=== PATIENT | male | born 1960 | race African-American/Black ===

== ENCOUNTER 2017-12-15 06:30 | Inpatient (IN) | payer OTHER ==
[2017-12-13 17:25] VITALS: BMI 27.3
[2017-12-15] MEDS ORDERED: NEOSTIGMINE METHYLSULFATE 0.5 MG/1 ML - 10 ML MDV ONE (07:25)
[2017-12-15] MEDS ORDERED: PROPOFOL 20 ML ONE ×2 (07:25)
[2017-12-15] MEDS ORDERED: ROCURONIUM BROMIDE 50 MG/5 ML VIAL ONE ×3 (07:25→11:16)
[2017-12-15] MEDS ORDERED: MIDAZOLAM HCL 2 MG/2 ML SINGLE DOSE VIAL ONE ×2 (07:25)
[2017-12-15] MEDS ORDERED: LIDOCAINE HCL/PF 2% SDV 5ML VIAL ONE (07:25)
[2017-12-15] MEDS ORDERED: fentaNYL CITRATE 250 MCG/5 ML VIAL ONE (07:25)
[2017-12-15] MEDS ORDERED: GLYCOPYRROLATE 0.2 MG/1 ML VIAL ONE (07:25)
[2017-12-15] MEDS ORDERED: ceFAZolin SODIUM 1 GM VIAL ONE ×2 (07:25→17:35)
[2017-12-15] MEDS ORDERED: SUCCINYLCHOLINE CHLORIDE 200 MG/10 ML VIAL ONE ×2 (07:25→14:19)
[2017-12-15] MEDS ORDERED: DEXAMETHASONE SOD PHOSPHATE 4 MG/1 ML VIAL ONE (07:25)
[2017-12-15] MEDS ORDERED: ONDANSETRON 4 MG/2 ML VIAL ONE (07:25)
[2017-12-15] MEDS ORDERED: CEFAZOLIN 2 GM in DEXTROSE 5%-WATER - 100 ML IVPB ONE (07:37)
--- NOTE | 2017-12-15 08:23 | HP ---
History & Physical Update - History History: No Change - Physical Physical: No Change - Assessment Assessment: No Change - Plan Plan: No Change
[2017-12-15] MEDS ORDERED: BUPIVACAINE HCL/PF 0.25% (2.5MG/ML) 10 ML VIAL ONE (08:24)
[2017-12-15] MEDS ORDERED: GENTAMICIN SO4 80 MG/2 ML VIAL ONE (08:24)
[2017-12-15] MEDS ORDERED: LIDOCAINE 1%/EPI 1:100000 (50 ML MULTI DOSE VIAL) INF ONE ×2 (09:15→11:40)
[2017-12-15] MEDS ORDERED: ceFAZolin SODIUM 1 GM VIAL IVPB ONE ×2 (09:22→12:15)
[2017-12-15] MEDS ORDERED: VANCOMYCIN 1,000 MG VIAL (RESTRICTED TO ID ONLY) IVPB ONE (09:25)
[2017-12-15] MEDS ORDERED: BACITRACIN 15 GM TUBE TOPICAL OINTMENT ONE (10:36)
[2017-12-15] MEDS ORDERED: ePHEDrine SULFATE 50 MG/1 ML AMPULE ONE (12:04)
[2017-12-15] MEDS ORDERED: BUPIVACAINE HCL/PF 0.5% (5MG/ML) 10 ML VIAL ONE (12:19)
[2017-12-15] MEDS ORDERED: ACETAMINOPHEN INJECTION 100 ML IVPB ONE (13:01)
[2017-12-15] MEDS ORDERED: ACETAMINOPHEN 1000 MG/100 ML VIAL (NON FORMULARY) IVPB ONE (13:10)
[2017-12-15] MEDS ORDERED: BUPIVACAINE HCL/PF 0.5% (5MG/ML) 10 ML VIAL IJ ONE (13:20)
[2017-12-15] MEDS ORDERED: VANCOMYCIN 1,000 MG VIAL (RESTRICTED TO ID ONLY) ONE (13:36)
[2017-12-15] MEDS ORDERED: LABETALOL HCL 5 MG/1 ML (100MG/20 ML VIAL) ONE (14:05)
[2017-12-15] MEDS ORDERED: DEXAMETHASONE SOD PHOSPHATE 4 MG/1 ML VIAL IVPUSH PRN (14:39)
[2017-12-15] MEDS ORDERED: ONDANSETRON 4 MG/2 ML VIAL IVPUSH PRN ×3 (14:39→14:45)
[2017-12-15] MEDS ORDERED: PROMETHAZINE HCL 25 MG/1 ML VIAL IVPB PRN (14:39)
--- NOTE | 2017-12-15 14:42 | OP ---
Operative Note - Note: Operative Date: 12/15/17 Pre-Operative Diagnosis: Cervical spondylosis and kyphosis Operation: Anterior c4/c5, c5/c6, c6/c7 corpectomies mormon of lordosis, reconstruction with PEEK Cage/anterior plating, Posterior C3/C4, C4/C5, C5/C6, C6/C7 laminectomies with mormon of lordosis and fusion Findings: as dictated Implants: as dictated Post-Operative Diagnosis: Same as Pre-op Surgeon: Oziel Lora City Constable: Sheeba Perea Anesthesiologist/METAL BOX MAKER: Ismael Maya Anesthesia: General, Local (Lido/epi 20cc to anterior incision, 20cc to posterior incision, 40cc .5% Marcaine to Posterior subcutaneous tissues at completion of case ) Estimated Blood Loss (mls): 300 (ml) Drains & Tubes with Location: JASMIN drains x2 Anterior cervical and posterior cervical subcutaneous tissue Fluid Volume Replaced (mls): 2,800 (ml) Operative Report Dictated: Yes
[2017-12-15] MEDS ORDERED: LACTATED RINGERS SOLUTION 1,000 ML IV SCH (14:45)
[2017-12-15] MEDS ORDERED: oxyCODONE HCL 5 MG TABLET PO PRN (14:53)
--- NOTE | 2017-12-15 15:01 | SURG ---
Surgery Cloth Layer Note Cloth Layer: Sheeba Perea PA-C (Suzy) Date of Service: 12/15/17 Diagnosis: Cervical spondylosis and kyphosis Procedure: Anterior c4/c5, c5/c6, c6/c7 corpectomies mosque of lordosis, reconstruction with PEEK Cage/anterior plating, Posterior C3/C4, C4/C5, C5/C6, C6/C7 laminectomies with mosque of lordosis and fusion I was present for the entirety of the operative procedure. For further detail, please refer to operative report. Visit type - Case Type Case Type: Scheduled - Emergency Emergency Visit: No - New patient This patient is new to me today: Yes Date on this admission: 12/15/17 - Critical Care Critical Care patient: No
[2017-12-15] MEDS: HYDROmorphone *PCA* 10MG/50ML DISP.SYRIN PCA SCH ×2 (15:10→23:08)
[2017-12-15] MEDS ORDERED: INSULIN SLIDING SCALE (NOVOLOG) 1 VIAL SQ ONE (15:50)
[2017-12-15] MEDS: LACTATED RINGERS SOLUTION 1,000 ML/1,000 ML INFUS.BAG IV SCH (18:15)
--- NOTE | 2017-12-15 18:48 | PROC ---
Procedure Note Procedure: Noe catheter placed by PA at start of case.
[2017-12-15] MEDS ORDERED: INSULIN REGULAR HUMAN 100 UNITS/ML *VIAL IVPUSH ONE (19:08)
[2017-12-15] MEDS ORDERED: CEFAZOLIN 1 GM in DEXTROSE 5%-WATER - 50 ML IVPB SCH (20:15)
[2017-12-15] MEDS: DOCUSATE SODIUM 100 MG CAPSULE (FP) PO SCH (23:19)
[2017-12-15] MEDS: ATORVASTATIN CA 10 MG TABLET (FP) PO SCH (23:19)
[2017-12-15] MEDS: INSULIN SLIDING SCALE (NOVOLOG) 1 VIAL SQ SCH ×2 (23:24)
[2017-12-16] MEDS ORDERED: ceFAZolin SODIUM 1 GM VIAL ONE (00:07)
[2017-12-16] MEDS ORDERED: DEXTROSE 5%-WATER - 50 ML IVPB ONE (00:08)
[2017-12-16] MEDS ORDERED: CEFAZOLIN 1 GM in DEXTROSE 5%-WATER - 50 ML IVPB ONE (02:00)
[2017-12-16] MEDS: diphenhydrAMINE HCL 25 MG CAPSULE (FP) PO PRN ×3 (06:14→17:57)
[2017-12-16] MEDS: DOCUSATE SODIUM 100 MG CAPSULE (FP) PO SCH ×3 (06:15→21:23)
[2017-12-16] MEDS: INSULIN SLIDING SCALE (NOVOLOG) 1 VIAL SQ SCH ×4 (06:18→21:34)
[2017-12-16] MEDS: HYDROmorphone *PCA* 10MG/50ML DISP.SYRIN PCA SCH ×2 (07:52→16:45)
[2017-12-16 08:37] LABS: HEMATOCRIT 38.4 % (35.4-49); HEMOGLOBIN 12.6 GM/dL (11.7-16.9); MCH 31.4 pg (25.7-33.7); MCHC 32.9 g/dl (32.0-35.9); MEAN CELL VOLUME 95.5 fl (80-96); MEAN PLT VOLUME 7.6 fl (7.5-11.1); PLATELET COUNT 253 K/MM3 (134-434); RBC 4.02 M/mm3 (4.00-5.60); RDW 13.1 % (11.9-15.9); WHITE BLOOD COUNT 12.9 K/mm3 (4.0-10.0)
[2017-12-16] MEDS: LACTATED RINGERS SOLUTION 1,000 ML/1,000 ML INFUS.BAG IV SCH ×2 (08:44→16:52)
[2017-12-16] MEDS: HEPARIN NA (PORCINE) 5,000 UNITS/ML 1ML VIAL SQ SCH ×3 (08:44→21:23)
[2017-12-16 09:11] LABS: ANION GAP 8 MMOL/L (8-16); BLOOD UREA NITROGEN 16 mg/dL (7-18); CALCIUM 8.7 mg/dL (8.5-10.1); CHLORIDE 102 mmol/L (98-107); CO2 30 mmol/L (21-32); GLUCOSE,RANDOM 131 mg/dL (74-106); POTASSIUM 4.1 mmol/L (3.5-5.1); SODIUM 140 mmol/L (136-145)
[2017-12-16] MEDS: FOLIC ACID 1 MG TABLET (FP) PO SCH (09:50)
[2017-12-16] MEDS: FERROUS SO4 325 MG TABLET (FP) PO SCH (09:50)
[2017-12-16] MEDS: LISINOPRIL 5 MG TABLET (FP) PO SCH (09:52)
[2017-12-16] MEDS ORDERED: PNEUMOC 13-VAL CONJ-DIP CRM/PF 0.5 ML DISP.SYRIN IM ONE (10:00)
[2017-12-16] MEDS ORDERED: INSULIN (LEVEMIR) 100 UNITS/ML UNITS SQ ONE (14:27)
[2017-12-16] MEDS: ACETAMINOPHEN 325 MG TABLET (FP) PO PRN (17:57)
--- NOTE | 2017-12-16 19:06 | PN ---
Progress Note (short form) - Note Progress Note: patient seen and examined in room at bedside patient awake c/o itching -- mostly around collar erythematous arounf border of collar chest / abdomen and arms no rash Vital Signs Period Temp Pulse Resp BP Sys/Marshall Pulse Ox Last 24 Hr 98.3 F-99.2 F 82-110 14-20 141-159/83-97 93-100 neck with rigid collar lungs clear bilateral heart s1/S2 abd soft non tender ext no edema / no calf tenderness FROM ++pulses CBC, BMP 12/16/17 07:00 12/16/17 07:00 Active Medications Acetaminophen (Tylenol -) 650 mg PO Q6H PRN PRN Reason: PAIN OR FEVER Last Admin: 12/16/17 17:57 Dose: 650 mg Atorvastatin Calcium (Lipitor -) 10 mg PO HS [facility] Last Admin: 12/15/17 23:19 Dose: 10 mg Dexamethasone Sodium Phosphate (Decadron Injection -) 4 mg IVPUSH ONCE PRN PRN Reason: NAUSEA AND/OR VOMITING Diphenhydramine HCl (Benadryl Injection -) 12.5 mg IVPUSH ONCE PRN PRN Reason: FOR ITCHING Last Admin: 12/16/17 03:13 Dose: 12.5 mg Diphenhydramine HCl (Benadryl -) 25 mg PO Q6H PRN PRN Reason: FOR ITCHING Last Admin: 12/16/17 17:57 Dose: 25 mg Docusate Sodium (Colace -) 100 mg PO TID [facility] Last Admin: 12/16/17 14:04 Dose: 100 mg Fentanyl (Sublimaze Injection -) 50 mcg IVPUSH [id number] PRN PRN Reason: PAIN-PACU ORDER X 4 DOSES ONLY Ferrous Sulfate (Feosol -) 325 mg PO DAILY [facility] Last Admin: 12/16/17 09:50 Dose: 325 mg Folic Acid (Folic Acid -) 1 mg PO DAILY [facility] Last Admin: 12/16/17 09:50 Dose: 1 mg Glipizide (Glucotrol -) 5 mg PO BIDAC [facility] Heparin Sodium (Porcine) (Heparin -) 5,000 unit SQ TID [facility] Last Admin: 12/16/17 14:04 Dose: 5,000 unit Hydromorphone HCl (Dilaudid Produce Sorter -) 10 mg STUNT WOMAN STUNT WOMAN [facility]; Protocol Stop: 12/22/17 14:39 Last Admin: 12/16/17 16:45 Dose: Not Given Lactated Ringer's (Lactated Ringers Solution) 1,000 ml in 1,000 mls @ 115 mls/ hr IV ASDIR [facility] Last Admin: 12/16/17 16:52 Dose: 115 mls/hr Insulin Aspart (Novolog Vial Sliding Scale -) 1 vial SQ ACHS [facility]; Protocol Last Admin: 12/16/17 16:47 Dose: Not Given Lisinopril (Prinivil) 5 mg PO DAILY [facility] Last Admin: 12/16/17 09:52 Dose: 5 mg Metformin HCl (Glucophage Xr -) 1,000 mg PO BIDAC [facility] Ondansetron HCl (Zofran Injection) 4 mg IVPUSH Q6H PRN PRN Reason: NAUSEA AND/OR VOMITING Ondansetron HCl (Zofran Injection) 4 mg IVPUSH Q4H PRN PRN Reason: NAUSEA AND/OR VOMITING Last Admin: 12/16/17 00:30 Dose: 4 mg Ondansetron HCl (Zofran Injection) 4 mg IVPUSH Q6H PRN PRN Reason: NAUSEA Oxycodone HCl (Roxicodone -) 5 mg PO Q4H PRN PRN Reason: PAIN LEVEL 1-5 Oxycodone HCl (Roxicodone -) 10 mg PO Q4H PRN PRN Reason: PAIN LEVEL 6-10 Promethazine HCl (Phenergan Injection -) 12.5 mg IVPB Q6H PRN PRN Reason: NAUSEA AND/OR VOMITING
[2017-12-16] MEDS ORDERED: diphenhydrAMINE HCL 25 MG CAPSULE (FP) PO PRN (19:07)
[2017-12-16] MEDS: ATORVASTATIN CA 10 MG TABLET (FP) PO SCH (21:23)
[2017-12-17] MEDS: ACETAMINOPHEN 325 MG TABLET (FP) PO PRN (00:57)
[2017-12-17] MEDS: INSULIN SLIDING SCALE (NOVOLOG) 1 VIAL SQ SCH ×4 (07:07→22:14)
[2017-12-17] MEDS: HEPARIN NA (PORCINE) 5,000 UNITS/ML 1ML VIAL SQ SCH ×3 (07:09→22:14)
[2017-12-17] MEDS: DOCUSATE SODIUM 100 MG CAPSULE (FP) PO SCH ×3 (07:15→22:13)
--- NOTE | 2017-12-17 07:48 | PN ---
Progress Note, Physician Chief Complaint: s/p cervical corpectomy, laminectomy and fusion under general anesthesia History of Present Illness: post op day one with contact lens flashing puncher for post op pain control - Current Medication List Current Medications: Active Medications Acetaminophen (Tylenol -) 650 mg PO Q6H PRN PRN Reason: PAIN OR FEVER Last Admin: 12/17/17 00:57 Dose: 650 mg Atorvastatin Calcium (Lipitor -) 10 mg PO HS [facility] Last Admin: 12/16/17 21:23 Dose: 10 mg Dexamethasone Sodium Phosphate (Decadron Injection -) 4 mg IVPUSH ONCE PRN PRN Reason: NAUSEA AND/OR VOMITING Diphenhydramine HCl (Benadryl Injection -) 12.5 mg IVPUSH ONCE PRN PRN Reason: FOR ITCHING Last Admin: 12/16/17 03:13 Dose: 12.5 mg Diphenhydramine HCl (Benadryl -) 50 mg PO Q6H PRN PRN Reason: FOR ITCHING Docusate Sodium (Colace -) 100 mg PO TID [facility] Last Admin: 12/17/17 07:15 Dose: 100 mg Fentanyl (Sublimaze Injection -) 50 mcg IVPUSH [id number] PRN PRN Reason: PAIN-PACU ORDER X 4 DOSES ONLY Ferrous Sulfate (Feosol -) 325 mg PO DAILY [facility] Last Admin: 12/16/17 09:50 Dose: 325 mg Folic Acid (Folic Acid -) 1 mg PO DAILY [facility] Last Admin: 12/16/17 09:50 Dose: 1 mg Glipizide (Glucotrol -) 5 mg PO BIDAC [facility] Heparin Sodium (Porcine) (Heparin -) 5,000 unit SQ TID [facility] Last Admin: 12/17/17 07:09 Dose: 5,000 unit Hydromorphone HCl (Dilaudid Wireless Telegrapher -) 10 mg GOLF CLUB MAKER GOLF CLUB MAKER [facility]; Protocol Stop: 12/22/17 14:39 Last Admin: 12/16/17 16:45 Dose: Not Given Lactated Ringer's (Lactated Ringers Solution) 1,000 ml in 1,000 mls @ 115 mls/ hr IV ASDIR [facility] Last Admin: 12/16/17 16:52 Dose: 115 mls/hr Insulin Aspart (Novolog Vial Sliding Scale -) 1 vial SQ [facility]; Protocol Last Admin: 12/17/17 07:07 Dose: Not Given Lisinopril (Prinivil) 5 mg PO DAILY [facility] Last Admin: 12/16/17 09:52 Dose: 5 mg Metformin HCl (Glucophage Xr -) 1,000 mg PO BIDAC [facility] Ondansetron HCl (Zofran Injection) 4 mg IVPUSH Q6H PRN PRN Reason: NAUSEA AND/OR VOMITING Ondansetron HCl (Zofran Injection) 4 mg IVPUSH Q4H PRN PRN Reason: NAUSEA AND/OR VOMITING Last Admin: 12/16/17 00:30 Dose: 4 mg Ondansetron HCl (Zofran Injection) 4 mg IVPUSH Q6H PRN PRN Reason: NAUSEA Oxycodone HCl (Roxicodone -) 5 mg PO Q4H PRN PRN Reason: PAIN LEVEL 1-5 Oxycodone HCl (Roxicodone -) 10 mg PO Q4H PRN PRN Reason: PAIN LEVEL 6-10 Promethazine HCl (Phenergan Injection -) 12.5 mg IVPB Q6H PRN PRN Reason: NAUSEA AND/OR VOMITING - Objective Vital Signs: Vital Signs Temperature 100 F H 12/17/17 06:00 Pulse Rate 102 H 12/17/17 06:00 Respiratory Rate 20 12/17/17 06:00 Blood Pressure 154/91 12/17/17 06:00 O2 Sat by Pulse Oximetry (%) 93 L 12/16/17 09:00 Constitutional: Yes: Well Nourished Cardiovascular: Yes: WNL Respiratory: Yes: WNL Gastrointestinal: Yes: WNL Assessment/Plan pain controlled, patient not tolerating PO yet, will continue contact lens flashing puncher
[2017-12-17 07:54] LABS: BASO % 0.5 % (0-2.0); EOS % 0.2 % (0-4.5); HEMOGLOBIN 12.4 GM/dL (11.7-16.9); LYMPH % 14.9 % (8-40); MCH 31.8 pg (25.7-33.7); MCHC 33.5 g/dl (32.0-35.9); MEAN CELL VOLUME 94.7 fl (80-96); MEAN PLT VOLUME 7.8 fl (7.5-11.1); MONO % 8.9 % (3.8-10.2); NEUT % 75.5 % (42.8-82.8); PLATELET COUNT 229 K/MM3 (134-434); WHITE BLOOD COUNT 12.5 K/mm3 (4.0-10.0)
[2017-12-17 08:19] LABS: ANION GAP 10 MMOL/L (8-16); BLOOD UREA NITROGEN 10 mg/dL (7-18); CALCIUM 8.6 mg/dL (8.5-10.1); CHLORIDE 100 mmol/L (98-107); CO2 30 mmol/L (21-32); CREATININE 0.8 mg/dL (0.55-1.3); GLUCOSE,RANDOM 119 mg/dL (74-106); POTASSIUM 4.1 mmol/L (3.5-5.1); SODIUM 140 mmol/L (136-145)
[2017-12-17] MEDS ORDERED: PT OWN MED DRAWER 7, Y5N ONE ×2 (08:42→17:13)
[2017-12-17] MEDS: glipiZIDE 5 MG TABLET (FP) PO SCH ×2 (08:53→17:18)
[2017-12-17] MEDS: LISINOPRIL 5 MG TABLET (FP) PO SCH (10:47)
[2017-12-17] MEDS: FERROUS SO4 325 MG TABLET (FP) PO SCH (10:47)
[2017-12-17] MEDS: FOLIC ACID 1 MG TABLET (FP) PO SCH (10:47)
--- NOTE | 2017-12-17 12:52 | PN ---
Progress Note (short form) - Note Progress Note: ANESTHESIOLOGY 57M on dilaudid TRAINING CONSULTANT, POD #2. Doing well, pain well controlled. Poor appetite. Vital Signs Temperature 99.4 F 12/17/17 09:16 Pulse Rate 103 H 12/17/17 09:16 Respiratory Rate 20 12/17/17 09:16 Blood Pressure 153/88 12/17/17 09:16 O2 Sat by Pulse Oximetry (%) 93 L 12/16/17 09:00 Active Medications Acetaminophen (Tylenol -) 650 mg PO Q6H PRN PRN Reason: PAIN OR FEVER Last Admin: 12/17/17 00:57 Dose: 650 mg Atorvastatin Calcium (Lipitor -) 10 mg PO HS [facility] Last Admin: 12/16/17 21:23 Dose: 10 mg Dexamethasone Sodium Phosphate (Decadron Injection -) 4 mg IVPUSH ONCE PRN PRN Reason: NAUSEA AND/OR VOMITING Diphenhydramine HCl (Benadryl Injection -) 12.5 mg IVPUSH ONCE PRN PRN Reason: FOR ITCHING Last Admin: 12/16/17 03:13 Dose: 12.5 mg Diphenhydramine HCl (Benadryl -) 50 mg PO Q6H PRN PRN Reason: FOR ITCHING Docusate Sodium (Colace -) 100 mg PO TID [facility] Last Admin: 12/17/17 07:15 Dose: 100 mg Fentanyl (Sublimaze Injection -) 50 mcg IVPUSH [id number] PRN PRN Reason: PAIN-PACU ORDER X 4 DOSES ONLY Ferrous Sulfate (Feosol -) 325 mg PO DAILY [facility] Last Admin: 12/17/17 10:47 Dose: 325 mg Folic Acid (Folic Acid -) 1 mg PO DAILY [facility] Last Admin: 12/17/17 10:47 Dose: 1 mg Glipizide (Glucotrol -) 5 mg PO BIDAC [facility] Last Admin: 12/17/17 08:53 Dose: 5 mg Heparin Sodium (Porcine) (Heparin -) 5,000 unit SQ TID [facility] Last Admin: 12/17/17 07:09 Dose: 5,000 unit Hydromorphone HCl (Dilaudid Electroencephalograph Technologist -) 10 mg TRAINING CONSULTANT TRAINING CONSULTANT [facility]; Protocol Stop: 12/22/17 14:39 Last Admin: 12/16/17 16:45 Dose: Not Given Lactated Ringer's (Lactated Ringers Solution) 1,000 ml in 1,000 mls @ 115 mls/ hr IV ASDIR [facility] Last Admin: 12/16/17 16:52 Dose: 115 mls/hr Insulin Aspart (Novolog Vial Sliding Scale -) 1 vial SQ ACHS [facility]; Protocol Last Admin: 12/17/17 11:11 Dose: 2 units Lisinopril (Prinivil) 5 mg PO DAILY [facility] Last Admin: 12/17/17 10:47 Dose: 5 mg Metformin HCl (Glucophage Xr -) 1,000 mg PO BIDAC [facility] Last Admin: 12/17/17 08:53 Dose: 1,000 mg Ondansetron HCl (Zofran Injection) 4 mg IVPUSH Q6H PRN PRN Reason: NAUSEA AND/OR VOMITING Ondansetron HCl (Zofran Injection) 4 mg IVPUSH Q4H PRN PRN Reason: NAUSEA AND/OR VOMITING Last Admin: 12/16/17 00:30 Dose: 4 mg Ondansetron HCl (Zofran Injection) 4 mg IVPUSH Q6H PRN PRN Reason: NAUSEA Oxycodone HCl (Roxicodone -) 5 mg PO Q4H PRN PRN Reason: PAIN LEVEL 1-5 Oxycodone HCl (Roxicodone -) 10 mg PO Q4H PRN PRN Reason: PAIN LEVEL 6-10 Promethazine HCl (Phenergan Injection -) 12.5 mg IVPB Q6H PRN PRN Reason: NAUSEA AND/OR VOMITING GEn :NAD Pain well controlled, continue TRAINING CONSULTANT until tolerating PO diet.
[2017-12-17] MEDS: oxyCODONE HCL 5 MG TABLET PO PRN ×3 (14:02→22:13)
--- NOTE | 2017-12-17 18:08 | PN ---
Progress Note (short form) - Note Progress Note: patient seen and examined in room at bedside patient awake --itching now resolved difficulty chewing Vital Signs Period Temp Pulse Resp BP Sys/Marshall Pulse Ox Last 24 Hr 98.3 F-99.2 F 82-110 14-20 141-159/83-97 93-100 neck with rigid collar lungs clear bilateral heart s1/S2 abd soft non tender ext no edema / no calf tenderness FROM ++pulses CBC, BMP 12/17/17 07:00 12/17/17 07:00 CBC, BMP 12/16/17 07:00 12/16/17 07:00 Active Medications Acetaminophen (Tylenol -) 650 mg PO Q6H PRN PRN Reason: PAIN OR FEVER Last Admin: 12/17/17 00:57 Dose: 650 mg Atorvastatin Calcium (Lipitor -) 10 mg PO HS [facility] Last Admin: 12/16/17 21:23 Dose: 10 mg Dexamethasone Sodium Phosphate (Decadron Injection -) 4 mg IVPUSH ONCE PRN PRN Reason: NAUSEA AND/OR VOMITING Diphenhydramine HCl (Benadryl Injection -) 12.5 mg IVPUSH ONCE PRN PRN Reason: FOR ITCHING Last Admin: 12/16/17 03:13 Dose: 12.5 mg Diphenhydramine HCl (Benadryl -) 50 mg PO Q6H PRN PRN Reason: FOR ITCHING Docusate Sodium (Colace -) 100 mg PO TID [facility] Last Admin: 12/17/17 14:03 Dose: 100 mg Fentanyl (Sublimaze Injection -) 50 mcg IVPUSH [id number] PRN PRN Reason: PAIN-PACU ORDER X 4 DOSES ONLY Ferrous Sulfate (Feosol -) 325 mg PO DAILY [facility] Last Admin: 12/17/17 10:47 Dose: 325 mg Folic Acid (Folic Acid -) 1 mg PO DAILY [facility] Last Admin: 12/17/17 10:47 Dose: 1 mg Glipizide (Glucotrol -) 5 mg PO BIDAC [facility] Last Admin: 12/17/17 17:18 Dose: 5 mg Heparin Sodium (Porcine) (Heparin -) 5,000 unit SQ TID [facility] Last Admin: 12/17/17 14:03 Dose: 5,000 unit Insulin Aspart (Novolog Vial Sliding Scale -) 1 vial SQ ACHS [facility]; Protocol Last Admin: 12/17/17 16:47 Dose: 2 units Lisinopril (Prinivil) 5 mg PO DAILY [facility] Last Admin: 12/17/17 10:47 Dose: 5 mg Metformin HCl (Glucophage Xr -) 1,000 mg PO BIDAC [facility] Last Admin: 12/17/17 17:18 Dose: 1,000 mg Ondansetron HCl (Zofran Injection) 4 mg IVPUSH Q6H PRN PRN Reason: NAUSEA AND/OR VOMITING Ondansetron HCl (Zofran Injection) 4 mg IVPUSH Q4H PRN PRN Reason: NAUSEA AND/OR VOMITING Last Admin: 12/16/17 00:30 Dose: 4 mg Ondansetron HCl (Zofran Injection) 4 mg IVPUSH Q6H PRN PRN Reason: NAUSEA Oxycodone HCl (Roxicodone -) 5 mg PO Q4H PRN PRN Reason: PAIN LEVEL 1-5 Oxycodone HCl (Roxicodone -) 10 mg PO Q4H PRN PRN Reason: PAIN LEVEL 6-10 Last Admin: 12/17/17 18:02 Dose: 10 mg Promethazine HCl (Phenergan Injection -) 12.5 mg IVPB Q6H PRN PRN Reason: NAUSEA AND/OR VOMITING s/p cervical corpectomy, laminectomy and fusion under general anesthesia POD #3 pain management physical therapy drains per Surgery medically stable
[2017-12-17] MEDS: ATORVASTATIN CA 10 MG TABLET (FP) PO SCH (22:13)
[2017-12-18] MEDS ORDERED: PT OWN MED DRAWER 7, Y5N ONE (06:50)
[2017-12-18] MEDS: glipiZIDE 5 MG TABLET (FP) PO SCH (06:56)
[2017-12-18] MEDS: HEPARIN NA (PORCINE) 5,000 UNITS/ML 1ML VIAL SQ SCH ×2 (06:57→14:19)
[2017-12-18] MEDS: INSULIN SLIDING SCALE (NOVOLOG) 1 VIAL SQ SCH ×2 (06:58→14:21)
[2017-12-18 07:54] LABS: BASO % 0.3 % (0-2.0); EOS % 0.7 % (0-4.5); HEMATOCRIT 38.9 % (35.4-49); HEMOGLOBIN 13.4 GM/dL (11.7-16.9); LYMPH % 16.2 % (8-40); MCH 32.4 pg (25.7-33.7); MCHC 34.5 g/dl (32.0-35.9); MEAN CELL VOLUME 94.2 fl (80-96); MEAN PLT VOLUME 8.2 fl (7.5-11.1); MONO % 9.4 % (3.8-10.2); NEUT % 73.4 % (42.8-82.8); PLATELET COUNT 250 K/MM3 (134-434); RBC 4.14 M/mm3 (4.00-5.60); RDW 12.9 % (11.9-15.9)
[2017-12-18 08:10] LABS: ANION GAP 12 MMOL/L (8-16); BLOOD UREA NITROGEN 10 mg/dL (7-18); CALCIUM 8.5 mg/dL (8.5-10.1); CHLORIDE 97 mmol/L (98-107); CO2 30 mmol/L (21-32); CREATININE 0.7 mg/dL (0.55-1.3); GLUCOSE,RANDOM 115 mg/dL (74-106); POTASSIUM 3.8 mmol/L (3.5-5.1); SODIUM 138 mmol/L (136-145)
[2017-12-18] MEDS: oxyCODONE HCL 5 MG TABLET PO PRN (08:42)
[2017-12-18] MEDS: ACETAMINOPHEN 325 MG TABLET (FP) PO PRN (08:44)
[2017-12-18] MEDS: LISINOPRIL 5 MG TABLET (FP) PO SCH (10:12)
[2017-12-18] MEDS: FERROUS SO4 325 MG TABLET (FP) PO SCH (10:12)
[2017-12-18] MEDS: FOLIC ACID 1 MG TABLET (FP) PO SCH (10:12)
--- NOTE | 2017-12-18 10:51 | PN ---
Progress Note (short form) - Note Progress Note: POD 3 Pt seen and examined. States he is having pain this morning, 6-7 at posterior neck (last PO meds 10pm). Reports pain and weakness to his left shoulder which he reports is new since yesterday morning, relays concern as he reports his RUE was the issue prior to surgery. Anterior JASMIN was accidentally removed overnight. Tolerating soft foods without issue, has been oob in holder without a problem. Voiding without difficulty. Denies cp, sob, n/v/d, calf pain or edema. Vital Signs Temp 98.6 F 12/18/17 06:44 Pulse 99 H 12/18/17 06:44 Resp 20 12/18/17 06:44 BP 163/92 12/18/17 06:44 Pulse Ox 95 12/17/17 09:00 Intake & Output 12/17/17 12/17/17 12/18/17 11:59 23:59 11:59 Intake Total 200 Output Total 45 670 65 Balance 155 -670 -65 Intake: Oral 200 Output: Drainage 45 70 65 drain #1 25 20 45 drain#2 20 50 20 Urine 600 Void 600 Other: Voiding Method Toilet Toilet CBC, BMP 12/18/17 07:15 12/18/17 07:15 Gen: awake, alert, nad, breathing without issue Neck: anterior dressing with minimal serosanguinous drainage at lateral aspect. Biopatch removed, dressing reinforced with tegaderm. Posterior dressing with minimal serosanguinous drainage, JASMIN with approx 10cc serosanguinous drainage in reservoir. JASMIN taken off of suction and removed without issue, tip intact. Pt tolerated well. Dressing reinforced with tegaderm. Resp: some rales auscultated over Left base of lung CV: tachy, s1s2, no murmur or rub EXT: b/l les without edema or pain Neuro: RUE full extension, lue only able to elevate to 45 degrees, b/l biceps/ triceps 5/5, RUE deltoid 5/5, LUE deltoid 2/5. Wrist ext/flexion 5/5 b/l, finger abduction 5/5 b/l. SILT slightly diminished b/l in fingertips (baseline per pt due to Finger sticks), b/l ue silt b/l. A/P: 57 y/o M w/ PMHx NIDDM, htn, Cervical spondylosis and kyphosis now POD 3, s /p Anterior c4/c5, c5/c6, c6/c7 corpectomies taoist of lordosis, reconstruction with PEEK Cage/anterior plating, Posterior C3/C4, C4/C5, C5/C6, C6/C7 laminectomies with taoist of lordosis and fusion. Mild LUE deltoid palsy new since yesterday. Pain controlled with PO pain meds, has been oob and voiding without issue. Congestion noted, low grade temps (tmax 100.9 over the weekend). Tachy likely d/t inadequate pain control. Posterior Jasmin removed (see exam above), anterior JASMIN self d/c'ed overnight by pt. -CXR ordered chest PT ordered, will f/u -Continue pain control -Pt seen and cleared for d/c later today by attending pending cxr pt seen and plan d/w attending dr Wise
[2017-12-18] MEDS: DOCUSATE SODIUM 100 MG CAPSULE (FP) PO SCH ×2 (14:19→14:22)
--- NOTE | 2017-12-18 15:17 | DS ---
Physical Examination Vital Signs: Vital Signs Temperature 98.6 F 12/18/17 06:44 Pulse Rate 99 H 12/18/17 06:44 Respiratory Rate 20 12/18/17 06:44 Blood Pressure 163/92 12/18/17 06:44 O2 Sat by Pulse Oximetry (%) 95 12/17/17 09:00 Findings/Remarks: A/P: 57 y/o M w/ PMHx NIDDM, htn, Cervical spondylosis and kyphosis now POD 3, s /p Anterior c4/c5, c5/c6, c6/c7 corpectomies adventism of lordosis, reconstruction with PEEK Cage/anterior plating, Posterior C3/C4, C4/C5, C5/C6, C6/C7 laminectomies with adventism of lordosis and fusion. Mild LUE deltoid palsy new since yesterday. Pain controlled with PO pain meds, has been oob and voiding without issue. Congestion noted, low grade temps (tmax 100.9 over the weekend). Tachy likely d/t inadequate pain control. Posterior Lukas removed (see exam above), anterior LUKAS self d/c'ed overnight by pt. Constitutional: Yes: Well Nourished, No Distress, Calm Eyes: Yes: Conjunctiva Clear, EOM Intact HENT: Yes: Atraumatic, Normocephalic Neck: Yes: Other (rigid collar in place) Cardiovascular: Yes: Regular Rate and Rhythm Respiratory: Yes: Regular, CTA Bilaterally Gastrointestinal: Yes: Normal Bowel Sounds, Soft ...Rectal Exam: Yes: Deferred Renal/: Yes: WNL Breast(s): Yes: WNL, Left Extremities: Yes: Other (left UE with decreased ROM) Edema: No Peripheral Pulses WNL: Yes Integumentary: Yes: WNL Wound/Incision: Yes: Dressing Dry and Intact, Other (lukas DRAINS REMOVED) Neurological: Yes: WNL ...Motor Strength: WNL Psychiatric: Yes: Alert, Oriented Labs: CBC, BMP 12/18/17 07:15 12/18/17 07:15 Discharge Summary Reason For Visit: CERVICAL SPONDYLOSIS & KYPHOSIS Condition: Stable - Instructions Diet, Activity, Other Instructions: Dr. Lora's Post Operative Instructions Physical Activity Resume your normal everyday activity as tolerated. No heavy lifting or exercise until seen by your surgeon. You may walk unlimited amounts and climb stairs. You may resume driving the car when you feel safe and comfortable behind the wheel and you are no longer wearing your brace. Do not operate a vehicle, heavy machinery or drink alcohol while taking narcotic medication. Brace If you had neck surgery, wear surgical collar 23 hr/day. Remove to shower only. Wound Care Keep your incision clean, dry and covered at all times. Apply an occlusive dressing (Saran wrap or Tegaderm) when showering to avoid getting your incision wet. Check the dressing after showering to ensure it has not become wet. Do not submerge incision or apply ointments or creams. The tab will be removed in the office in 10-14 days post-op. Diet There are no dietary restrictions. Eat healthy, high-fiber foods. Drink 6-8 glasses of liquid each day. This will assist in keeping your bowels regular. Pain Management You may take Tylenol (acetaminophen) for mild pain. Any pain prescription medication ordered should be taken as prescribed for moderate to severe pain. Take narcotic pain medications as prescribed. Do not take more than the prescribed dose, if this dose is not controlling your pain, please contact your surgeons office. Do not drive, drink alcohol or operate heavy machinery while taking narcotic pain medications. Do not take any NSAIDS, Advil, Motrin, Aleve, Aspirin, etc for 3 months unless otherwise instructed by your surgeon. This can cause issues with healing from your fusion. Call Dr Wise for any of the following: Severe pain not relieved by medication Fever of 101 or higher Excessive bleeding or drainage on dressing Inability to urinate Any chest pain or shortness of breath, seek Emergency Care. Call the office to confirm a post-operative appointment for 2-3 weeks post-op Oziel Lora MD [facility] [address] [place] [address] Referrals: Ramy Rivera [Non Staff, Medical] - Disposition: HOME - Home Medications Comprehensive Discharge Medication List: Ambulatory Orders Glipizide [Glucotrol] 5 mg PO BID 12/13/17 Lisinopril [Zestril] 5 mg PO DAILY 12/13/17 Metformin HCl [Metformin HCl ER] 1,000 mg PO BID 12/13/17 Simvastatin [Zocor -] 5 mg PO HS 12/13/17 OXYCODONE prn for pain for 1 week
[2017-12-18 15:35] VITALS: BP 150/80; PULSE 78; TEMP 98.4
== END 2017-12-18 17:26 | disposition home or self-care (01) | DRG 473 ==
LOC: JSAMEDAYSX 06:30 → EDSTATUS 08:00 → J8W 22:01
PROVIDERS: ADMIT Family Medicine; ATTEND Family Medicine
PROC: 0RG20A0 Fusion of 2 or more Cervical Vertebral Joints with Interbody Fusion Device, Anterior Approach, Anterior Column, Open Approach (ICD-10-PCS; principal; 2017-12-15 08:00)
DX: M50.021 Cervical disc disorder at C4-C5 level with myelopathy (principal); M50.022 Cervical disc disorder at C5-C6 level with myelopathy; M50.023 Cervical disc disorder at C6-C7 level with myelopathy; I10 Essential (primary) hypertension; K21.9 Gastro-esophageal reflux disease without esophagitis; E11.9 Type 2 diabetes mellitus without complications; E78.5 Hyperlipidemia, unspecified
CPT/HCPCS: 36415; 71045-TC-FY; 72125-TC; 76000-TC-FY; 80048; 82962; 85025; 85027; 86850; 86900; 86901; 90670; 94760; 97116-GP; 97161-GP; J0131; J1644

== ENCOUNTER 2020-09-22 10:37 | Emergency (ER) | payer OTHER ==
[2020-09-22 11:00] VITALS: TEMP 98; BMI 25.8
[2020-09-22] MEDS ORDERED: diazePAM 5 MG TABLET PO ONE (12:04)
[2020-09-22] MEDS ORDERED: METHOCARBAMOL 500 MG TABLET PO ONE (12:04)
[2020-09-22] MEDS ORDERED: LIDOCAINE 5% TOPICAL PATCH TP ONE (12:05)
[2020-09-22] MEDS ORDERED: KETOROLAC TROMETHAMINE 15 MG/ML VIAL IVPUSH ONE (12:05)
[2020-09-22] MEDS ORDERED: KETOROLAC TROMETHAMINE 30 MG/1 ML VIAL IVPUSH ONE (12:25)
[2020-09-22] MEDS ORDERED: diazePAM 5 MG TABLET ONE (12:26)
[2020-09-22] MEDS ORDERED: LIDOCAINE 5% TOPICAL PATCH ONE (12:26)
[2020-09-22] MEDS ORDERED: KETOROLAC TROMETHAMINE 30 MG/1 ML VIAL ONE (12:27)
[2020-09-22 13:10] LABS: BASO % 0.6 % (0-2.0); EOS % 0.4 % (0-4.5); HEMATOCRIT 43.9 % (35.4-49); LYMPH % 12.7 % (8-40); MCH 32.8 pg (25.7-33.7); MCHC 34.3 g/dl (32.0-35.9); MEAN CELL VOLUME 95.7 fl (80-96); MEAN PLT VOLUME 7.9 fl (7.5-11.1); MONO % 3.7 % (3.8-10.2); NEUT % 82.6 % (42.8-82.8); PLATELET COUNT 295 10^3/uL (134-434); RBC 4.58 M/mm3 (4.00-5.60); RDW 12.5 % (11.9-15.9); WHITE BLOOD COUNT 8.9 K/mm3 (4.0-10.0)
[2020-09-22 13:27] LABS: CALCIUM 9.4 mg/dL (8.5-10.1)
[2020-09-22 13:28] LABS: ALBUMIN 4.2 g/dl (3.4-5.0); BLOOD UREA NITROGEN 14.4 mg/dL (7-18)
[2020-09-22 13:31] LABS: CREATININE 1.2 mg/dL (0.55-1.3)
[2020-09-22 13:33] LABS: BILIRUBIN,TOTAL 0.4 mg/dL (0.2-1); TOT PROT 7.7 g/dl (6.4-8.2)
[2020-09-22 15:21] VITALS: BP 143/88; PULSE 79
[2020-09-22] MEDS ORDERED: LIDOCAINE PATCH REMOVAL MC SCH (22:00)
== END 2020-09-22 15:21 | disposition home or self-care (01) ==
LOC: JER 10:37
PROC: 3E0333Z Introduction of Anti-inflammatory into Peripheral Vein, Percutaneous Approach (ICD-10-PCS; principal; 2020-09-22)
DX: M54.41 Lumbago with sciatica, right side (principal); M54.16 Radiculopathy, lumbar region
CPT/HCPCS: 36415; 71045-TC-FY; 72131-TC; 72148-TC; 80053; 85025; 93005; 93010; 99285-25; C9803; U0003; U0005